=== PATIENT | female | born 2000 | race Caucasian/White ===

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

== ENCOUNTER → 2021-01-03 | Outpatient (CLI) | payer BC ==
[2021-01-04 04:00] LABS: DHEA Sulfate 190.7 ug/dL (26.0-430.0)
[2021-01-04 05:09] LABS: T4, Free (Free Thyroxine) 1.1 ng/dL (0.83-1.43)
[2021-01-04 05:10] LABS: Estradiol 36.8 pg/mL; Follicle Stimulating Hormone 10.2 mIU/mL; Luteinizing Hormone 7.4 mIU/mL
== END | disposition home or self-care (01) ==
LOC: LABWHC1 11:08
PROVIDERS: ATTEND Obstetrics & Gynecology
DX: E28.2 Polycystic ovarian syndrome (principal)
CPT/HCPCS: 36415; 82627; 82670; 82947; 83001; 83002; 83525; 84403; 84439; 84443; 84479

== ENCOUNTER → 2021-09-05 | Outpatient (CLI) | payer OTHER ==
--- NOTE | 2021-09-06 09:37 | XR ---
EXAMINATION TYPE: XR cervical spine limited DATE OF EXAM: 09/05/2021 COMPARISON: NONE HISTORY: Pain TECHNIQUE: 3 views are submitted. FINDINGS: The odontoid is intact. There are no compression deformities. The prevertebral soft tissue structur es are within normal limits. IMPRESSION: 1. No acute process.
--- NOTE | 2021-09-06 09:49 | XR ---
EXAMINATION TYPE: XR thoracic spine complete DATE OF EXAM: 09/05/2021 COMPARISON: NONE HISTORY: Pain TECHNIQUE: 3 views submitted FINDINGS: Alignment is anatomic. There is no compression deformities. Vertebral body height and disc interspa morgan are maintained. Very subtle curvature of the vertebral column. IMPRESSION: 1. No abnormality. If concern for disc herniation correlate with MRI.
== END | disposition home or self-care (01) ==
LOC: RADXRMAIN 16:29
PROVIDERS: ATTEND Family Medicine
DX: M54.2 Cervicalgia (principal); M54.6 Pain in thoracic spine
CPT/HCPCS: 72040; 72072

== ENCOUNTER → 2021-10-02 | Outpatient (CLI) | payer OTHER | LOC: CPPFTMAIN 11:23 | PROVIDERS: ATTEND Family Medicine | DX: R06.02 Shortness of breath (principal) | CPT/HCPCS: 94060; 94726; 94729 ==

== ENCOUNTER 2024-07-03 17:51 | Inpatient (IN) | payer BC, MEDICAID, OTHER ==
--- NOTE | 2024-07-03 18:51 | ED ---
Psych HPI - General Chief Complaint: Psychiatric Symptoms Stated Complaint: mental health Time Seen by Provider: 07/03/24 18:05 Source: patient, RN notes reviewed Mode of arrival: ambulatory - History of Present Illness Initial Comments: 24-year-old presenting for mental health evaluation. States he mental health at long time however over the past 2 weeks states that is more than he can handle. He is having suicidal ideation. Denies plan. Denies homicidal ideation. No medical complaints - Related Data Home Medications Medication Instructions Recorded Confirmed Cetirizine HCl [Zyrtec] 10 mg PO HS 06/08/18 02/24/19 Montelukast [Singulair] 10 mg PO HS 06/08/18 02/24/19 Melatonin 10 mg PO HS 02/05/19 02/24/19 cloNIDine HCL [Catapres] 0.2 mg PO HS 02/05/19 02/24/19 Enskyce 28 1 tab PO HS 02/08/19 02/24/19 Ferrous Sulfate [Iron] 325 mg PO HS 02/20/19 02/24/19 Albuterol Inhaler [Ventolin Hfa 1 - 2 inh INHALATION Q6H PRN 03/29/24 03/31/24 Inhaler] Testosterone [Testosterone 1.62% 1 appful TOPICAL DAILY 03/29/24 03/31/24 (2500 mg)] Allergies Allergy/AdvReac Type Severity Reaction Status Date / Time No Known Allergies Allergy Verified 07/03/24 17:56 Review of Systems ROS Statement: Those systems with pertinent positive or pertinent negative responses have been documented in the HPI. ROS Other: All systems not noted in ROS Statement are negative. Past Medical History Past Medical History: Asthma, Blood Disorder, Syncope Additional Past Medical History / Comment(s): "croaking" - difficulty burping History of Any Multi-Drug Resistant Organisms: None Reported Past Surgical History: No Surgical Hx Reported, Tonsillectomy Additional Past Surgical History / Comment(s): D & C, wisdom teeth extraction Past Anesthesia/Blood Transfusion Reactions: No Reported Reaction Additional Past Anesthesia/Blood Transfusion Reaction / Comment(s): severe muscle aches for a few hours upon waking up after D & C Past Psychological History: Anxiety, Depression, PTSD Smoking Status: Vaper Past Alcohol Use History: Rare Past Drug Use History: Marijuana - Past Family History Mother Additional Family Medical History / Comment(s): endometrial cancer General Exam Limitations: no limitations General appearance: alert, in no apparent distress Head exam: Present: atraumatic, normocephalic, normal inspection Neurological exam: Present: alert, oriented X3 Psychiatric exam: Present: normal affect, normal mood, suicidal ideation. Absent: homicidal ideation Skin exam: Present: warm, dry, intact, normal color. Absent: rash Course Vital Signs 07/03/24 07/03/24 17:53 20:44 Temperature 97.5 F L 98.6 F Pulse Rate 78 72 Respiratory 18 17 Rate Blood Pressure 139/89 137/95 O2 Sat by Pulse 100 100 Oximetry Medical Decision Making - Medical Decision Making Was pt. sent in by a medical professional or institution (, PA, SOUNDSCRIBER MECHANIC, urgent care, hospital, or senior care...) When possible be specific @ -No Did you speak to anyone other than the patient for history (EMS, parent, family, police, friend...)? What history was obtained from this source @ -No Did you review nursing and triage notes (agree or disagree)? Why? @ -I reviewed and agree with nursing and triage notes Were old charts reviewed (outside hosp., previous admission, EMS record, old EKG, old radiological studies, urgent care reports/EKG's, senior care records)? Report findings @ -No old charts were reviewed Differential Diagnosis (chest pain, altered mental status, abdominal pain women, abdominal pain men, vaginal bleeding, weakness, fever, dyspnea, syncope, headache, dizziness, GI bleed, back pain, seizure, CVA, palpatations, mental health, musculoskeletal)? @ -Differential Mental Health Depression, anxiety, bipolar, psychosis, schizophrenia, borderline personality, situational depression, adjustment disorder, behavioral disorder, brain tumor, malingering, substance abuse, encephalopathy, medication reaction, dementia, hypothyroidism, degenerative neurologic disorder, lupus.... This is not meant to be all-inclusive list EKG interpreted by me (3pts min.). @ -None X-rays interpreted by me (1pt min.). @ -None done CT interpreted by me (1pt min.). @ -None done U/S interpreted by me (1pt. min.). @ -None done What testing was considered but not performed or refused? (CT, X-rays, U/S, labs)? Why? @ -None What meds were considered but not given or refused? Why? @ -None Did you discuss the management of the patient with other professionals (professionals i.e. , PA, SOUNDSCRIBER MECHANIC, lab, RT, psych nurse, social service assistant, manager emergency department, teacher, emergency response officer, leather case finisher)? Give summary @ -I spoke with EPS who recommends psychiatric admission Was smoking cessation discussed for >3mins.? @ -No Was critical care preformed (if so, how long)? @ -No Were there social determinants of health that impacted care today? How? (Homelessness, low income, unemployed, alcoholism, drug addiction, transportation, low edu. Level, literacy, decrease access to med. care, care home, rehab)? @ -No Was there de-escalation of care discussed even if they declined (Discuss DNR or withdrawal of care, Hospice)? DNR status @ -No What co-morbidities impacted this encounter? (DM, HTN, Smoking, COPD, CAD, Cancer, CVA, ARF, Chemo, Hep., AIDS, mental health diagnosis, sleep apnea, morbid obesity)? @ -None Was patient admitted / discharged? Hospital course, mention meds given and route, prescriptions, significant lab abnormalities, going to OR and other pertinent info. @ - admitted. 24-year-old presenting for suicidal ideation. Denies plan. No medical complaints. Patient was cleared to be seen by EPS. EPS recommends psychiatric admission. I agree with this plan. Case was discussed with my ED attending Dr. Murillo. Undiagnosed new problem with uncertain prognosis? @ -No Drug Therapy requiring intensive monitoring for toxicity (Heparin, Nitro, Insulin, Cardizem)? @ -No Were any procedures done? @ -No Diagnosis/symptom? @ -Suicidal ideation Acute, or Chronic, or Acute on Chronic? @ -Acute Uncomplicated (without systemic symptoms) or Complicated (systemic symptoms)? @ -Uncomplicated Side effects of treatment? @ -No Exacerbation, Progression, or Severe Exacerbation? @ -No Poses a threat to life or bodily function? How? (Chest pain, [place], [place], pneumonia, PE, COPD, DKA, ARF, appy, cholecystitis, CVA, Diverticulitis, Homicidal, Suicidal, threat to staff... and all critical care pts) @ -Yes, suicidal - Lab Data Lab Results 07/03/24 07/03/24 Range/Units 06:10 19:13 Urine Opiates Screen Not Detected (NotDetected) Ur Oxycodone Screen Not Detected (NotDetected) Urine Methadone Screen Not Detected (NotDetected) Ur Barbiturates Screen Not Detected (NotDetected) U Tricyclic Antidepress Not Detected (NotDetected) Ur Phencyclidine Scrn Not Detected (NotDetected) Ur Amphetamines Screen Not Detected (NotDetected) U Methamphetamines Scrn Not Detected (NotDetected) U Benzodiazepines Scrn Not Detected (NotDetected) Urine Cocaine Screen Not Detected (NotDetected) U Marijuana (THC) Screen Detected H (NotDetected) SARS-CoV-2 (PCR) Not Detected (Not Detectd) Disposition Clinical Impression: Suicidal ideation Disposition: ADMITTED IP TO THIS HOSP Time of Disposition: 19:46
[2024-07-03 18:52] LABS: Amphetamine Screen,Urine Not Detected (NotDetected); Barbiturate Screen,Urine Not Detected (NotDetected); Benzodiazepines Screen,Urine Not Detected (NotDetected); Cocaine Screen,Urine Not Detected (NotDetected); Methadone Screen, Urine Not Detected (NotDetected); Opiate Screen,Urine Not Detected (NotDetected); Oxycodone Screen, Urine Not Detected (NotDetected); Phencyclidine Screen,Urine Not Detected (NotDetected); Tricyclic Antidepressant,Urine Not Detected (NotDetected); Urn Cannabinoid Scrn Detected (NotDetected)
[2024-07-03] MEDS ORDERED: ACETAMINOPHEN TAB 325 MG TAB PO PRN (20:19)
[2024-07-03] MEDS ORDERED: IBUPROFEN 600 MG TAB PO PRN (20:19)
[2024-07-03] MEDS ORDERED: MAGNESIUM HYDROXIDE 2,400 MG/30 ML CUP PO PRN (20:19)
[2024-07-03] MEDS ORDERED: MAG HYDROX/AL HYDROX/SIMETH 355 ML BOTTLE PO PRN (20:19)
[2024-07-03] MEDS ORDERED: LORazepam 1 MG TAB PO PRN (20:23)
[2024-07-03] MEDS ORDERED: LORazepam 2 MG/ML INJ IM PRN (20:23)
[2024-07-03] MEDS ORDERED: HALOPERIDOL LACTATE 5 MG/ML 1 ML VIAL IM PRN (20:23)
[2024-07-03] MEDS ORDERED: haloperidoL 5 MG TAB PO PRN (20:23)
[2024-07-03] MEDS: [UNRECOGNIZED DRUG - OTHER] PO SCH (22:31)
[2024-07-03] MEDS: traZODone HCL 50 MG TAB PO PRN (22:56)
--- NOTE | 2024-07-04 01:59 | P.CONS ---
History of Present Illness - Reason for Consult Consult date: 07/04/24 - History of Present Illness The patient is a 24-year-old patient with pronouns he/him with PMH of asthma who had presented to the emergency room with complaints of depression and suicidal ideation. He was admitted to the mental health unit where he was seen and evaluated. He reports struggling with mental health issues for quite some time now which prompted him to seek help. He denied any active complaints at the ti me of interview. Denied experiencing chest discomfort, shortness of breath, fever, chills, cough, nausea, vomiting, abdominal pain, diarrhea. Review of systems: Pertinent positives and negatives as discussed in HPI, a complete review of systems was performed and all other systems are negative. Physical examination: General: non toxic, no distress, appears at stated age, normal weight Derm: no unusual rashes/lesions, no unusual ecchymoses, warm, dry Head: atraumatic, normocephalic, symmetric Eyes: EOMI, no lid lag, anicteric sclera ENT: Nose and ears atraumatic, no thrush, no pharyngeal erythema Neck: trachea midline, supple Mouth: no lip lesion, mucus membranes moist Cardiovascular: S1S2 reg, no murmur, no edema Lungs: CTA bilateral, no rhonchi, no rales , no accessory muscle use Abdominal: soft, nontender to palpation, no guarding Ext: no gross muscle atrophy, no contractures, Neuro: No gross focal neuro deficits noted Psych: Alert, oriented, appropriate affect Assessment: Marijuana abuse Depression and suicidal ideation Imaging: None performed Data Review: Urine toxicology positive for marijuana Plan: Advised on importance of cessation from marijuana use Defer management of depression and suicidal ideation to the primary psychiatry service Thank you for allowing us to participate in the care of this patient. We will follow peripherally. Do not hesitate to contact us with questions. Someone can be reached from the [facility] hospitalist group at all hours of the day at [phone]. Past Medical History Past Medical History: Asthma, Blood Disorder, Syncope Additional Past Medical History / Comment(s): "croaking" - difficulty burping History of Any Multi-Drug Resistant Organisms: None Reported Past Surgical History: No Surgical Hx Reported, Tonsillectomy Additional Past Surgical History / Comment(s): D & C, wisdom teeth extraction Past Anesthesia/Blood Transfusion Reactions: No Reported Reaction Additional Past Anesthesia/Blood Transfusion Reaction / Comm: severe muscle aches for a few hours upon waking up after D & C Past Psychological History: Anxiety, Depression, PTSD Smoking Status: Vaper Past Alcohol Use History: Rare Past Drug Use History: Marijuana - Past Family History Mother Additional Family Medical History / Comment(s): endometrial cancer Medications and Allergies Home Medications Medication Instructions Recorded Confirmed Type Cetirizine HCl [Zyrtec] 10 mg PO HS 06/08/18 02/24/19 History Montelukast [Singulair] 10 mg PO HS 06/08/18 02/24/19 History Melatonin 10 mg PO HS 02/05/19 02/24/19 History cloNIDine HCL [Catapres] 0.2 mg PO HS 02/05/19 02/24/19 History Enskyce 28 1 tab PO HS 02/08/19 02/24/19 History Ferrous Sulfate [Iron] 325 mg PO HS 02/20/19 02/24/19 History Albuterol Inhaler [Ventolin Hfa 1 - 2 inh INHALATION Q6H PRN 03/29/24 03/31/24 History Inhaler] Testosterone [Testosterone 1.62% 1 appful TOPICAL DAILY 03/29/24 03/31/24 History (2500 mg)] Allergies Allergy/AdvReac Type Severity Reaction Status Date / Time No Known Allergies Allergy Verified 07/03/24 17:56 Physical Exam Vitals: Vital Signs Temp Pulse Pulse Resp BP BP Pulse Ox 07/03/24 21:11 97.5 F 66 16 138/90 100 07/03/24 20:44 98.6 F 72 17 137/95 100 07/03/24 17:53 97.5 F L 78 18 139/89 100 Intake and Output 07/03/24 07/03/24 07/04/24 14:59 22:59 06:59 Other: Weight 72.376 kg Results Labs: Abnormal Lab Results - Last 24 Hours (Table) 07/03/24 Range/Units 06:10 U Marijuana (THC) Screen Detected H (NotDetected)
[2024-07-04 07:54] LABS: Basophils % (A) 0 %; Eosinophils # (A) 0.2 k/uL (0-0.7); Eosinophils % (A) 3 %; HCT 42.8 % (39.0-53.0); HGB 13.9 gm/dL (13.0-17.5); Lymphocytes # (A) 3.1 k/uL (1.0-4.8); Lymphocytes % (A) 38 %; MCH 27.9 pg (25.0-35.0); MCHC 32.4 g/dL (31.0-37.0); Mean Platelet Volume 7.3; Monocytes # (A) 0.4 k/uL (0-1.0); Monocytes % (A) 4 %; Neutrophils # (A) 4.4 k/uL (1.3-7.7); Neutrophils % (A) 54 %; Platelet Count 259 k/uL (150-450); RBC 4.98 m/uL (4.30-5.90); RDW 13.4 % (11.5-15.5); WBC 8.2 k/uL (3.8-10.6)
[2024-07-04] MEDS: lamoTRIgine 25 MG TAB PO SCH (08:16)
[2024-07-04 08:17] LABS: ALT 13 U/L (4-49); AST 18 U/L (17-59); African American GFR (CKD) >90 (>60 ml/min/1.73 sqM); Albumin 4.2 g/dL (3.5-5.0); Alkaline Phosphatase 44 U/L (38-126); Anion Gap 8 mmol/L; Blood Urea Nitrogen 11 mg/dL (9-20); Calcium 9.5 mg/dL (8.4-10.2); Carbon Dioxide 27 mmol/L (22-30); Chloride 105 mmol/L (98-107); Glucose 82 mg/dL (74-99); Non-African American GFR(CKD) >90 (>60 ml/min/1.73 sqM); Potassium 4.1 mmol/L (3.5-5.1); Sodium 140 mmol/L (137-145); Total Bilirubin 0.2 mg/dL (0.2-1.3)
--- NOTE | 2024-07-04 11:00 | P.HP ---
Psychiatric H&P - . H&P Date: 07/04/24 History & Physical: Allergies Allergy/AdvReac Type Severity Reaction Status Date / Time No Known Allergies Allergy Verified 07/03/24 17:56 Vital Signs Temp 98.1 F 07/04/24 06:36 Pulse 72 07/04/24 06:36 Resp 16 07/03/24 21:11 BP 127/83 07/04/24 06:36 Pulse Ox 99 07/04/24 06:36 FiO2 Intake & Output 07/03/24 07/04/24 07/04/24 18:59 06:59 18:59 Weight 72.575 kg 72.376 kg Laboratory Last Values WBC 8.2 k/uL (3.8-10.6) 07/04/24 06:33 RBC 4.98 m/uL (4.30-5.90) 07/04/24 06:33 Hgb 13.9 gm/dL (13.0-17.5) 07/04/24 06:33 Hct 42.8 % (39.0-53.0) 07/04/24 06:33 MCV 86.0 fL (80.0-100.0) 07/04/24 06:33 MCH 27.9 pg (25.0-35.0) 07/04/24 06:33 MCHC 32.4 g/dL (31.0-37.0) 07/04/24 06:33 RDW 13.4 % (11.5-15.5) 07/04/24 06:33 Plt Count 259 k/uL (150-450) 07/04/24 06:33 MPV 7.3 07/04/24 06:33 Neutrophils % 54 % 07/04/24 06:33 Lymphocytes % 38 % 07/04/24 06:33 Monocytes % 4 % 07/04/24 06:33 Eosinophils % 3 % 07/04/24 06:33 Basophils % 0 % 07/04/24 06:33 Neutrophils # 4.4 k/uL (1.3-7.7) 07/04/24 06:33 Lymphocytes # 3.1 k/uL (1.0-4.8) 07/04/24 06:33 Monocytes # 0.4 k/uL (0-1.0) 07/04/24 06:33 Eosinophils # 0.2 k/uL (0-0.7) 07/04/24 06:33 Basophils # 0.0 k/uL (0-0.2) 07/04/24 06:33 Sodium 140 mmol/L (137-145) 07/04/24 06:33 Potassium 4.1 mmol/L (3.5-5.1) 07/04/24 06:33 Chloride 105 mmol/L (98-107) 07/04/24 06:33 Carbon Dioxide 27 mmol/L (22-30) 07/04/24 06:33 Anion Gap 8 mmol/L 07/04/24 06:33 BUN 11 mg/dL (9-20) 07/04/24 06:33 Creatinine 0.87 mg/dL (0.66-1.25) 07/04/24 06:33 Est GFR (CKD-EPI)AfAm >90 (>60 ml/min/1.73 sqM) 07/04/24 06:33 Est GFR (CKD-EPI)NonAf >90 (>60 ml/min/1.73 sqM) 07/04/24 06:33 Glucose 82 mg/dL (74-99) 07/04/24 06:33 Calcium 9.5 mg/dL (8.4-10.2) 07/04/24 06:33 Total Bilirubin 0.2 mg/dL (0.2-1.3) 07/04/24 06:33 AST 18 U/L (17-59) 07/04/24 06:33 ALT 13 U/L (4-49) 07/04/24 06:33 Alkaline Phosphatase 44 U/L (38-126) 07/04/24 06:33 Total Protein 7.0 g/dL (6.3-8.2) 07/04/24 06:33 Albumin 4.2 g/dL (3.5-5.0) 07/04/24 06:33 TSH 2.430 mIU/L (0.465-4.680) 07/04/24 06:33 Urine HCG, Qual Not Detected (Not Detectd) 07/03/24 06:10 Urine Opiates Screen Not Detected (NotDetected) 07/03/24 06:10 Ur Oxycodone Screen Not Detected (NotDetected) 07/03/24 06:10 Urine Methadone Screen Not Detected (NotDetected) 07/03/24 06:10 Ur Barbiturates Screen Not Detected (NotDetected) 07/03/24 06:10 U Tricyclic Antidepress Not Detected (NotDetected) 07/03/24 06:10 Ur Phencyclidine Scrn Not Detected (NotDetected) 07/03/24 06:10 Ur Amphetamines Screen Not Detected (NotDetected) 07/03/24 06:10 U Methamphetamines Scrn Not Detected (NotDetected) 07/03/24 06:10 U Benzodiazepines Scrn Not Detected (NotDetected) 07/03/24 06:10 Urine Cocaine Screen Not Detected (NotDetected) 07/03/24 06:10 U Marijuana (THC) Screen Detected (NotDetected) H 07/03/24 06:10 SARS-CoV-2 (PCR) Not Detected (Not Detectd) 07/03/24 19:13 07/04/24 10:45 The patient is a 24-year-old patient with pronouns he/him with PMH of asthma who had presented to the emergency room with complaints of depression and suicidal ideation. He was admitted to the mental health unit where he was seen and evaluated. He reports struggling with mental health issues for quite some time now which prompted him to seek help. He denied any active complaints at the time of interview. Denied experiencing chest discomfort, shortness of breath, fever, chills, cough, nausea, vomiting, abdominal pain, diarrhea. The patient has done a lot of reading on mental health and their pattern fits with ADHD, PTSD, DID, Bipolar disorder and burnout. As a teen they had brown psychotic episodes, but these went away and have been gone for years and could have been dissociative episodes from the trauma. Now they struggle with severe depression some of which is situational and some that just comes and goes. They recently broke up from a one year relationship which left them thinking hopeless thoughts of worthlessness and never having a good relationship. They have been tried on anti depressants including Wellbutrin and SSRI's and these made them more suicidal. Abilify caused severe akathesia. They were then started on Lamotrigine and last friday that was increased from 100 to 150 because it was not working. They had trouble obtaining it and have been out for 4 days. Social history. Their parents were severely disfunctional. Dad was a "Narcissist" and mom had bipolar but would not get treated and everyone had attention problems. She was the only child born to them and they broke up when she was 13, "but should have broken up long before." She could not consistently please either of them,(which would fit with Borderline personality) She has three half siblings and everyone struggles. No or legal history. Mental status: Alert oriented, cooperative, sad affect, good eye contact, no psychotic symptoms acknowledged or evidenced, stays on topic, no aggression. was able to remember 3 of 3 things for 5 min, could spell WORLD backwards, name the last 3 presidents and all of the [place], cats and snakes both hiss and have interesting patterns, (she could not generate any other similarities) she hates math so much that she would not try to subtract 7 from 93, for (the grass looke greener on the other side) she said, " focus on your own grass and don't be jealous) Diagnosis is complex: Mood disorder NOS and probably borderline personality disorder and ADHD Suggest retritrate Lamictal start at 75 for a week and add in Geodon because it has a very low rate of akathesia. She remains a danger to self.
[2024-07-04] MEDS: TESTOSTERONE TOPICAL SCH (14:13)
[2024-07-04] MEDS: ZIPRASIDONE 60 MG CAP PO SCH (17:35)
[2024-07-04] MEDS: CEREFOLINNAC PO SCH (19:52)
[2024-07-05] MEDS: ALBUTEROL INHALER 60 PUFF/8 GM INHALER (MHU) INHALATION PRN (04:57)
--- NOTE | 2024-07-05 12:59 | P.PN ---
Progress Note - Text Progress Note Date: 07/05/24 Interval History: Patient was seen wandering the hallways and was directable and agreeable to sp neha with technical publications writer in the office. He states coming in due to ongoing suicidal ideations but states dealing with mental health issues for the past 10 years. He does report some fatigue with starting Geodon but otherwise is tolerating this medication well. He states following up with [facility] and states being off Lamictal for 4 days and thus this has to be restarted. He denies any previous adverse effects to Lamictal was encouraged to monitor for rash. He reports some racing thoughts at nighttime and was encouraged to start journaling. At this time patient denies any suicidal or homicidal ideations, intent or plan. Patient denies any auditory, visual hallucinations and denies any paranoia or delusions. Patient has been compliant with meds. Mental Status Exam: General Appearance: Patient appears to be stated age is alert, directable, and cooperative. Patient has blue dyed hair and eyebrows Behavior: Patient is calmly seated without any agitated behavior. Speech: Patient's speech is fluent and nonpressured. Mood/Affect: Mood is improving mildly, affect is congruent and constricted. Suicidality/Homicidality: Patient denies having any suicidal or homicidal ideation intent or plan. Perceptions: Patient denies any visual hallucinations and denies any auditory hallucinations Though content/process: There is no evidence of any delusional thought content and thought process is linear and goal-directed. Memory and concentration: AOX3, grossly intact for the purposes of this session Judgment and insight: Improving mildly Assessment Unspecified mood disorder Cluster B traits Plan: -Patient continues to meet criteria for inpatient psychiatric admission for symptom stabilization and safety. Patient has signed adult voluntary form and medication consent and was placed in patient's chart. -Medications: Continue Geodon 60 mg twice daily for mood stabilization, Lamictal 75 mg daily for mood stabilization, trazodone 50 mg as needed at bedtime for sleep -When necessary Ativan and Haldol for agitation/aggression. -Labs: Reviewed -SW on board for discharge planning. Encouraged the patient to participate in milieu. Anticipate discharge back home with roommates on pending stabilization in suicidal ideations and optimization of meds.
[2024-07-06] MEDS: IPRATROPIUM-ALBUTEROL 3 ML NEB INHALATION STA (05:22)
--- NOTE | 2024-07-06 12:17 | P.PN ---
Progress Note - Text Progress Note Date: 07/06/24 Interval History: Patient was seen wandering the hallways and was directable and agreeable to sp renuk with senior mortgage underwriter in the office. Patient reports some breathing difficulties overnight that did impact sleep and they received a breathing treatment. They report akathisia with Geodon described as restlessness. They state yesterday having a breakdown after speaking to senior mortgage underwriter due to not being discharged however they have since there thought process to more positive, tried to stay active with peers on the unit and being more goal oriented. At this time patient denies any suicidal or homicidal ideations, intent or plan. Patient denies any auditory, visual hallucinations and denies any paranoia or delusions. Patient has been compliant with meds. Mental Status Exam: General Appearance: Patient appears to be stated age is alert, directable, and cooperative. Patient has blue dyed hair and eyebrows Behavior: Patient is calmly seated without any agitated behavior. Slight restlessness noted Speech: Patient's speech is fluent and nonpressured. Mood/Affect: Mood is improving mildly, affect is congruent and reactive. Suicidality/Homicidality: Patient denies having any suicidal or homicidal ideation intent or plan. Perceptions: Patient denies any visual hallucinations and denies any auditory hallucinations Though content/process: There is no evidence of any delusional thought content and thought process is linear and goal-directed. Memory and concentration: AOX3, grossly intact for the purposes of this session Judgment and insight: Improving mildly Assessment Unspecified mood disorder Cluster B traits Plan: -Patient continues to meet criteria for inpatient psychiatric admission for symptom stabilization and safety. Patient has signed adult voluntary form and medication consent and was placed in patient's chart. -Medications: Decrease Geodon to 20 mg at dinner and 40 mg at bedtime due to adverse effects, continue Lamictal 75 mg daily for mood stabilization, trazodone 50 mg as needed at bedtime for sleep -When necessary Ativan and Haldol for agitation/aggression. -Labs: Reviewed -SW on board for discharge planning. Encouraged the patient to participate in milieu. Anticipate discharge back home with roommates on pending stabilization in safety concerns and optimization of meds
[2024-07-06] MEDS: ZIPRASIDONE 20 MG CAP PO SCH (17:18)
[2024-07-06] MEDS: ZIPRASIDONE 40 MG CAP PO SCH (20:02)
[2024-07-07 05:40] VITALS: BP 139/88; PULSE 64; RESP 15; TEMP 97.7
[2024-07-07] MEDS: lamoTRIgine 100 MG TAB PO SCH (08:37)
--- NOTE | 2024-07-07 13:39 | P.DS ---
Providers Date of admission: 07/03/24 20:17 Expected date of discharge: 07/07/24 Attending physician: Vandana Lal MD Consults: 07/03/24 20:19 Consult Physician Routine Consulting Provider: Dawood Quiroz Consult Reason/Comments: H&P Do you want consulting provider notified?: Yes Primary care physician: Parvez Bob - Discharge Diagnosis(es) (1) Unspecified mood [affective] disorder Status: Acute Priority: High (2) Cluster B personality disorder Status: Acute Priority: Medium Hospital Course: Admission HPI: Admission note was completed by Dr. Acuña "The patient is a 24-year-old patient with pronouns he/him with PMH of asthma who had presented to the emergency room with complaints of depression and suicidal ideation. He was admitted to the mental health unit where he was seen and evaluated. He reports struggling with mental health issues for quite some time now which prompted him to seek help. He denied any active complaints at the time of interview. Denied experiencing chest discomfort, shortness of breath, fever, chills, cough, nausea, vomiting, abdominal pain, diarrhea. The patient has done a lot of reading on mental health and their pattern fits with ADHD, PTSD, DID, Bipolar disorder and burnout. As a teen they had brown psychotic episodes, but these went away and have been gone for years and could have been dissociative episodes from the trauma. Now they struggle with severe depression some of which is situational and some that just comes and goes. They recently broke up from a one year relationship which left them thinking hopeless thoughts of worthlessness and never having a good relationship. They have been tried on anti depressants including Wellbutrin and SSRI's and these made them more suicidal. Abilify caused severe akathesia. They were then started on Lamotrigine and last friday that was increased from 100 to 150 because it was not working. They had trouble obtaining it and have been out for 4 days." Hospital course: Upon admission to the unit patient was directable and agreeable to commence treatment and signed adult voluntary form.. Patient got along well with other patients on the unit and followed unit protocol. Patient was compliant with the medications and denied any side effects throughout hospital course. Patient was started on Geodon which was started originally at 80 mg twice daily however patient reported some restlessness and this was decreased to 20 mg at dinner and 40 mg at bedtime with significant improvement in adverse effects. Patient was also started on lamotrigine and this was increased to 100 mg daily for mood stabilization, trazodone started at 50 mg as needed at bedtime for sleep. Patient spoke of his stressors and engaged in therapy both group and individual. Patient was also seen by medical team for history and physical exam. Throughout the course of the hospitalization patient gradually improved with regards to mood, anxiety, sleep and became more future oriented with improved insight and judgment. On the day of discharge patient denied any suicidal or homicidal ideations intent or plan denied any auditory or visual hallucinations. The patient denied any access to guns or weapons. Patient denied any paranoia and did not endorse any delusions. Patient does not have a significant history of substance abuse and was counseled on abstaining from all substances including alcohol and marijuana. Patient was also counseled on the medications and need for regular compliance and was encouraged to follow-up with their outpatient appointment for mental health and also for primary care. Prior to discharge a f amily meeting will be arranged by social organization professor to answer any questions and ensure safety upon discharge incuding making sure that guns/weapons are either removed from the home or locked away. Patient to be discharged back home with roommates with [facility] follow-up. Mental status exam: General Appearance: Patient appears to be stated age is alert, pleasant, and cooperative. Patient is in no acute distress and has fair hygiene and grooming. patient notably has blue dyed hair and eyebrows Behavior: Patient is calmly seated without any agitated behavior. Speech: Patient's speech is fluent and nonpressured. Mood/Affect: Patient reports their mood is "better", affect is congruent and euthymic, reactive. Suicidality/Homicidality: Patient denies having any suicidal or homicidal ideation intent or plan. Perceptions: Patient denies any auditory or visual hallucinations. Though content/process: There is no evidence of any delusional thought content and thought process is linear and goal-directed. More future oriented Memory and concentration: AOX3, grossly intact for the purposes of this session. Can spell "WORLD" backwards correctly. Judgment and insight: Good Impression: Unspecified mood disorder Zi B traits Plan: -Continue with discharge today as patient has improved and stabilized psychiatrically and is not currently an imminent threat to themself and/or others. -Continue medications: Geodon 40 mg at bedtime and 20 mg with dinner, lamotrigine 100 mg daily, trazodone 50 mg as needed at bedtime -Patient was counseled on the need for medication compliance and appropriate follow-up at mental health and also primary care for medical issues. Patient verbalized understanding and agreed. -Social work to help coordinate patients discharge today arrange for and conduct family meeting to ensure safety upon discharge and answer any questions/concerns. also to ensure safe home environment that guns/weapons are either removed from the home or locked away. Social work also to arrange for patients follow up appointments with [facility] for psychiatric care along with follow up with primary care provider. -Patient counseled on abstaining from recreational drugs and marijuana and alcohol. Was informed/educated on the adverse effects on their physical and mental health. Patient verbally agreed and understood. -Patient was instructed to return to the hospital or seek immediate medical care if their psychiatric or medical symptoms do worsen or reoccur. Abnormal Labs 07/03/24 07/04/24 06:10 06:33 Lamotrigine 1.9 L U Marijuana (THC) Screen Detected H Vital Signs Temp 97.7 F 07/07/24 05:40 Pulse 64 07/07/24 05:40 Resp 15 07/07/24 05:40 BP 139/88 07/07/24 05:40 Pulse Ox 99 07/05/24 06:41 FiO2 Allergies Allergy/AdvReac Type Severity Reaction Status Date / Time No Known Allergies Allergy Verified 07/03/24 17:56 Patient Condition at Discharge: Stable Plan - Discharge Summary Discharge Rx Participant: No New Discharge Prescriptions: New Ziprasidone [Geodon] 20 mg PO 1699 15 Days #15 cap Ziprasidone [Geodon] 40 mg PO 1999 15 Days #15 cap Testosterone [Testosterone 1.62% (2500 mg)] 1 appful TOPICAL DAILY traZODone HCL [Desyrel] 50 mg PO HS PRN 15 Days #15 tab PRN Reason: sleep lamoTRIgine [LaMICtal] 100 mg PO DAILY 15 Days #15 tab Continue Testosterone [Androgel 1.62%] 1 pump TRANSDERM DAILY Levomefolate Calcium [l-Methylfolate Calcium] 7.5 mg PO BID Discontinued lamoTRIgine [LaMICtal Xr] 50 mg PO DAILY lamoTRIgine [LaMICtal Xr] 100 mg PO DAILY Discharge Medication List Levomefolate Calcium [l-Methylfolate Calcium] 7.5 mg PO BID 07/05/24 [History] Testosterone [Androgel 1.62%] 1 pump TRANSDERM DAILY 07/05/24 [History] Testosterone [Testosterone 1.62% (2500 mg)] 1 appful TOPICAL DAILY 07/07/24 [Rx] Ziprasidone [Geodon] 20 mg PO 1700 15 Days #15 cap 07/07/24 [Rx] Ziprasidone [Geodon] 40 mg PO 1999 15 Days #15 cap 07/07/24 [Rx] lamoTRIgine [LaMICtal] 100 mg PO DAILY 15 Days #15 tab 07/07/24 [Rx] traZODone HCL [Desyrel] 50 mg PO HS PRN 15 Days #15 tab 07/07/24 [Rx] Follow up Appointment(s)/Referral(s): [facility] [Outside] - 07/13/24 8:00 am (07/13/2024 8:00AM - 9:00AM [facility] 07/21/2024 2:00PM - 2:30PM [facility] ) Parvez Bob DO [Primary Care Provider] - 1-2 days Patient Instructions/Handouts: Mood Disorders (DC) Activity/Diet/Wound Care/Special Instructions: [facility] Discharge Info Avoid the use of street drugs and alcohol. Take all medications as prescribed. When you are in need of refills on your medications, please contact your outpatient medical provider and/or outpatient psychiatrist. Please go to your scheduled outpatient appointments for aftercare treatment. If symptoms return or become worse, call the crisis line at or and/or visit the nearest emergency room for assistance. National Suicide and Crisis Lifeline - call or text 488 Discharge Disposition: HOME SELF-CARE
== END 2024-07-07 12:22 | disposition home or self-care (01) | DRG 885 ==
LOC: EDSEX → EC 17:51 → 3MHU 20:17
PROVIDERS: ADMIT Psychiatry & Neurology Psychiatry; ATTEND Psychiatry & Neurology Psychiatry
DX: F39 Unspecified mood [affective] disorder (principal); R45.851 Suicidal ideations; F12.10 Cannabis abuse, uncomplicated; J45.909 Unspecified asthma, uncomplicated; F60.89 Other specific personality disorders; R45.1 Restlessness and agitation; F17.290 Nicotine dependence, other tobacco product, uncomplicated; Z71.51 Drug abuse counseling and surveillance of drug abuser; Z79.890 Hormone replacement therapy; Z79.899 Other long term (current) drug therapy; Z71.89 Other specified counseling
CPT/HCPCS: 80053; 80175; 80306; 81025; 82075; 83036; 84443; 85025; 87635; 94640; 99285